=== PATIENT | female | born 1960 | race Caucasian/White ===

== ENCOUNTER 2019-05-02 10:51 | Emergency (ER) | payer BC ==
[2019-05-02] MEDS ORDERED: Sodium Chloride 0.9% 1000 ML 1,000 ML IV STA (10:55)
[2019-05-02] MEDS ORDERED: BABY ASPIRIN 81 MG CHEW PO ONE (10:55)
[2019-05-02] MEDS ORDERED: Zofran 4 MG/2 ML VIAL IV ONE (10:55)
--- NOTE | 2019-05-02 10:59 | ERPHSYRPT ---
- History of Present Illness Time Seen by Provider: 05/02/19 10:55 Historian: patient Exam Limitations: no limitations Physician History: Patient has had constant chest pain with pain on inspiration for the past 3 days. She has not had any evaluation or testing prior to coming into the emergency department. Timing/Duration: day(s) (3) Activities at Onset: rest Quality: sharpness Location: substernal, central, back (patient feels the pain in her back in the thoracic area is different and separate from her chest pain) Chest Pain Radiation: back Severity of Pain-Max: moderate Severity of Pain-Current: moderate Modifying Factors: Improves With: breathing (worsens the pain in her chest and back), movement (worsens the pain in her back). Worsens With: coughing, defecating, eating, exertion, lying down, rest, change in position Associated Symptoms: nausea, shortness of breath, hurts to breathe, diaphoresis , No vomiting, No palpitations, No heartburn, No abdominal pain, No cough, No chills, No fever, No fatigue, No weakness, No syncope, No rash, No headache, No dizziness, No edema Prior Chest Pain/Cardiac Workup: no prior chest pain Nitro Today/Relief: no nitro taken today Aspirin Treatment Today: no aspirin today Allergies/Adverse Reactions: No Known Drug Allergies Allergy (Verified 05/02/19 11:10) Home Medications: Desvenlafaxine Succinate [Pristiq ER] 50 mg PO DAILY 10/03/18 [History] Omeprazole 40 mg PO DAILY 10/03/18 [History] Alprazolam 1 mg [Xanax 1 mg] 1 mg PO HS 05/02/19 [History] - Review of Systems Constitutional: No Fever, No Chills Eyes: No Symptoms Ears, Nose, & Throat: No Nose Congestion, No Mouth Pain, No Mouth Swelling, No Hoarse, No Painful Swallowing Respiratory: No Cough, No Dyspnea Cardiac: Chest Pain, No Edema, No Syncope Abdominal/Gastrointestinal: No Abdominal Pain, No Nausea, No Vomiting, No Diarrhea Genitourinary Symptoms: No Dysuria Musculoskeletal: No Back Pain, No Neck Pain Skin: No Rash Neurological: No Dizziness, No Focal Weakness, No Sensory Changes Psychological: No Symptoms Endocrine: No Symptoms Hematologic/Lymphatic: No Easy Bleeding, No Easy Bruising All Other Systems: Reviewed and Negative - Past Medical History Pertinent Past Medical History: No Neurological History: No Pertinent History ENT History: No Pertinent History Cardiac History: No Pertinent History Respiratory History: No Pertinent History Endocrine Medical History: No Pertinent History Musculoskeletal History: No Pertinent History GI Medical History: No Pertinent History History: No Pertinent History Psycho-Social History: No Pertinent History Female Reproductive Disorders: No Pertinent History - Past Surgical History Past Surgical History: Yes Neuro Surgical History: No Pertinent History Cardiac: No Pertinent History Respiratory: No Pertinent History Gastrointestinal: No Pertinent History, Cholecystectomy Genitourinary: No Pertinent History Musculoskeletal: Orthopedic Surgery Female Surgical History: Section Other Surgical History: kendall carpal tunnel,,lap babar., - Social History Smoking Status: Never smoker Exposure to second hand smoke: No Drug Use: none - Nursing Vital Signs Nursing Vital Signs: Initial Vital Signs Temperature 100.2 F 05/02/19 10:52 Pulse Rate 98 H 05/02/19 10:52 Blood Pressure 137/78 05/02/19 10:52 O2 Sat by Pulse Oximetry 100 05/02/19 10:52 Pain Scale Pain Intensity 4 - Physical Exam General Appearance: no apparent distress, alert Eye Exam: PERRL/EOMI, eyes nml inspection Ears, Nose, Throat Exam: normal ENT inspection, moist mucous membranes Neck Exam: normal inspection, non-tender, supple, full range of motion Respiratory Exam: normal breath sounds, lungs clear, airway intact, No respiratory distress, No accessory muscle use, No prolonged expirations, No crackles/rales, No rhonchi, No wheezing, No stridor, No pleural rub Cardiovascular Exam: regular rate/rhythm, normal heart sounds, normal peripheral pulses, capillary refill <2 sec, No murmur, No friction rub Gastrointestinal/Abdomen Exam: soft, No tenderness, No mass Back Exam: normal inspection, No CVA tenderness, No vertebral tenderness Extremity Exam: normal inspection, normal range of motion Neurologic Exam: alert, oriented x 3, cooperative, sr. media manager II-XII nml as tested, normal mood/affect, sensation nml, No motor deficits Skin Exam: normal color, warm, dry SpO2 Interpretation: normal O2 Delivery: Room Air - Course Nursing assessment & vital signs reviewed: Yes EKG Interpreted by Me: RATE (105), Sinus Tach, NORMAL AXIS, NORMAL INTERVALS, NORMAL QRS, NORMAL ST-T - CT Exams Chest CT Interpretation: Other (per radiologist interpretation: No acute cardiopulmonary processes seen. No evidence of pulmonary embolism, aortic dissection, airspace of Ultrase, pneumothorax, or pleural effusion/abnormal pleural reaction. This delta reveals no acute fracture or aggressive bone lesion. Mild to moderate osteoarthritic changes are seen within the mid and lower thoracic spine. There is also some mild anterolateral spur in within the visualized upper lumbar spine. The upper abdomen reveals an unremarkable appearance of the adrenal glands. Surgical clips consistent with prior cholecystectomy are noted. The remainder of the visualized upper abdomen appears unremarkable. some minimal linear atelectasis is seen at the anterior medial right lung base.) Ordered Tests: Active Orders 24 hr Category Date Time Status Door Clamper STAT Care 05/02/19 10:56 Active EKG-ER Only STAT Care 05/02/19 10:55 Active IV Insertion STAT Care 05/02/19 10:55 Active Re-Check Vital Signs STAT Care 05/02/19 10:55 Active CHEST WITH CONTRAST [CT] Stat Exams 05/02/19 10:56 Taken CBC W DIFF Stat Lab 05/02/19 11:25 Completed CK-Creatinine Phosphokinase Stat Lab 05/02/19 11:25 Completed CMP Stat Lab 05/02/19 11:25 Completed LIPASE Stat Lab 05/02/19 11:25 Completed NT PRO BNP Stat Lab 05/02/19 11:25 Completed PROTIME WITH INR Stat Lab 05/02/19 11:25 Completed PTT Stat Lab 05/02/19 11:25 Completed TROPONIN Q3H Lab 05/02/19 11:25 Completed TROPONIN Q3H Lab 05/02/19 14:00 Ordered TROPONIN Q3H Lab 05/02/19 17:00 Ordered TROPONIN Q3H Lab 05/02/19 20:00 Ordered TROPONIN Q3H Lab 05/02/19 23:00 Ordered Medication Summary Discontinued Medications Generic Name Dose Route Start Last Admin Trade Name Freq PRN Reason Stop Dose Admin Aspirin 324 mg 05/02/19 10:55 05/02/19 11:25 Baby Aspirin 81 Mg Chew PO 05/02/19 10:56 324 mg STAT ONE Administration Sodium Chloride 1,000 mls @ 999 mls/hr 05/02/19 10:55 05/02/19 11:46 Sodium Chloride 0.9% 1000 Ml IV 05/02/19 11:55 999 mls/hr .Q1H1M STA Administration Sodium Chloride Confirm 05/02/19 11:45 Sodium Chloride 0.9% 1000 Ml Administered 05/02/19 11:46 Dose 1,000 mls @ ud .ROUTE .[employer] ONE Ondansetron HCl 4 mg 05/02/19 10:55 05/02/19 11:46 Zofran 4 Mg/2 Ml Vial IV 05/02/19 10:56 4 mg STAT ONE Administration Ondansetron HCl Confirm 05/02/19 11:45 Zofran 4 Mg/2 Ml Vial Administered 05/02/19 11:46 Dose 4 mg .ROUTE .[employer] ONE Lab/Rad Data: Laboratory Result Diagrams 05/02/19 11:25 05/02/19 11:25 Laboratory Results 05/02/19 05/02/19 05/02/19 Range/Units 11:25 11:25 11:25 WBC (4.0-10.5) K/mm3 RBC (4.1-5.4) M/mm3 Hgb (12.0-16.0) gm/dl Hct (35-47) % MCV (78-100) fl MCH (26-32) pg MCHC (32-36) g/dl RDW (11.5-14.0) % Plt Count (150-450) K/mm3 MPV (6-9.5) fl Gran % (36.0-66.0) % Eos # (Auto) (0-0.5) Absolute Lymphs (auto) (1.0-4.6) Absolute Monos (auto) (0.0-1.3) Lymphocytes % (24.0-44.0) % Monocytes % (0.0-12.0) % Eosinophils % (0.00-5.0) % Basophils % (0.0-0.4) % Absolute Granulocytes (1.4-6.9) Basophils # (0-0.4) PT 13.0 H (9.95-12.35) SECONDS INR 1.15 (0.8-3.0) APTT 30.7 (25.3-37.0) SECONDS Sodium 139 (137-145) mmol/L Potassium 4.1 (3.5-5.1) mmol/L Chloride 103 (98-107) mmol/L Carbon Dioxide 26 (22-30) mmol/L Anion Gap 14.4 (5-15) MEQ/L BUN 11 (7-17) mg/dL Creatinine 0.60 (0.52-1.04) mg/dL Estimated GFR > 60.0 ML/MIN Glucose 104 (74-106) mg/dL Calcium 9.6 (8.4-10.2) mg/dL Total Bilirubin 0.70 (0.2-1.3) mg/dL AST 24 (14-36) U/L ALT 24 (0-35) U/L Alkaline Phosphatase 65 (38-126) U/L Creatine Kinase 44 (30-135) U/L Troponin I < 0.012 (0.000-0.034) ng/mL NT-Pro-B Natriuret Pep 116 (0-900) pg/mL Serum Total Protein 7.7 (6.3-8.2) g/dL Albumin 4.4 (3.5-5.0) g/dL Lipase 36 (23-300) U/L 05/02/19 Range/Units 11:25 WBC 11.5 H (4.0-10.5) K/mm3 RBC 4.06 L (4.1-5.4) M/mm3 Hgb 12.5 (12.0-16.0) gm/dl Hct 37.7 (35-47) % MCV 92.9 (78-100) fl MCH 30.7 (26-32) pg MCHC 33.2 (32-36) g/dl RDW 12.8 (11.5-14.0) % Plt Count 226 (150-450) K/mm3 MPV 9.8 H (6-9.5) fl Gran % 68.2 H (36.0-66.0) % Eos # (Auto) 0.07 (0-0.5) Absolute Lymphs (auto) 2.29 (1.0-4.6) Absolute Monos (auto) 1.27 (0.0-1.3) Lymphocytes % 20.0 L (24.0-44.0) % Monocytes % 11.1 (0.0-12.0) % Eosinophils % 0.6 (0.00-5.0) % Basophils % 0.1 (0.0-0.4) % Absolute Granulocytes 7.81 H (1.4-6.9) Basophils # 0.01 (0-0.4) PT (9.95-12.35) SECONDS INR (0.8-3.0) APTT (25.3-37.0) SECONDS Sodium (137-145) mmol/L Potassium (3.5-5.1) mmol/L Chloride (98-107) mmol/L Carbon Dioxide (22-30) mmol/L Anion Gap (5-15) MEQ/L BUN (7-17) mg/dL Creatinine (0.52-1.04) mg/dL Estimated GFR ML/MIN Glucose (74-106) mg/dL Calcium (8.4-10.2) mg/dL Total Bilirubin (0.2-1.3) mg/dL AST (14-36) U/L ALT (0-35) U/L Alkaline Phosphatase (38-126) U/L Creatine Kinase (30-135) U/L Troponin I (0.000-0.034) ng/mL NT-Pro-B Natriuret Pep (0-900) pg/mL Serum Total Protein (6.3-8.2) g/dL Albumin (3.5-5.0) g/dL Lipase (23-300) U/L - Progress Progress: re-examined Air Movement: good Progress Note: 05/02/19 12:20 Patient's pain has improved, but did worsen with movement. 05/02/19 12:35 Patient is chest pain free. patient denies any pleuritic type chest pain, palpitations, dyspnea, abdominal pain or fevers currently. patient has no hypoxia and is 100% on room air. 05/02/19 12:40 HEART score: 1- up to 1.7% risk of MACE in the next 6 weeks, low risk, can be worked up as an outpatient at this time. -patient is at low risk for an acute cardiac, pulmonary, vascular, or infectious etiology causing her symptoms at this time he can be discharged home with followup as an outpatient with her primary care provider. 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 Prescriptions: Etodolac 400 mg [Lodine 400 mg] 400 mg PO BID PRN PRN #20 tablet PRN Reason: Pain
[2019-05-02 11:41] LABS: BASOPHIL % 0.1 % (0.0-0.4); Basophil (Absolute #) 0.01 (0-0.4); Eosinophil % 0.6 % (0.00-5.0); Eosinophil (Absolute #) 0.07 (0-0.5); Granulocyte Absolute (ANC) 7.81 (1.4-6.9); Granulocytes % 68.2 % (36.0-66.0); Hematocrit 37.7 % (35-47); Hemoglobin 12.5 gm/dl (12.0-16.0); Lymphocyte (Absolute #) 2.29 (1.0-4.6); Mean Cell Volume 92.9 fl (78-100); Mean Corpuscular Hemoglobin 30.7 pg (26-32); Mean Corpuscular Hgb Concent. 33.2 g/dl (32-36); Mean Platelet Volume 9.8 fl (6-9.5); Monocyte (Absolute #) 1.27 (0.0-1.3); Monocytes % 11.1 % (0.0-12.0); Platelet Count 226 K/mm3 (150-450); Red Blood Count 4.06 M/mm3 (4.1-5.4); Red Cell Distribution Width 12.8 % (11.5-14.0); White Blood Count 11.5 K/mm3 (4.0-10.5)
[2019-05-02] MEDS ORDERED: Zofran 4 MG/2 ML VIAL ONE (11:45)
[2019-05-02] MEDS ORDERED: Sodium Chloride 0.9% 1000 ML 1,000 ML ONE (11:45)
[2019-05-02 11:48] LABS: INR 1.15 (0.8-3.0)
[2019-05-02 11:51] LABS: PTT 30.7 SECONDS (25.3-37.0)
[2019-05-02 12:01] LABS: ALBUMIN 4.4 g/dL (3.5-5.0); ALKALINE PHOSPHATASE 65 U/L (38-126); ANION GAP 14.4 MEQ/L (5-15); BLOOD UREA NITROGEN 11 mg/dL (7-17); CHLORIDE 103 mmol/L (98-107); CK-Creatinine Phosphokinase 44 U/L (30-135); Calcium 9.6 mg/dL (8.4-10.2); Carbon Dioxide 26 mmol/L (22-30); Glucose 104 mg/dL (74-106); LIPASE 36 U/L (23-300); NT PRO BNP 116 pg/mL (0-900); Potassium 4.1 mmol/L (3.5-5.1); SGOT/AST 24 U/L (14-36); SGPT/ALT 24 U/L (0-35); SODIUM 139 mmol/L (137-145); Total Protein 7.7 g/dL (6.3-8.2)
--- NOTE | 2019-05-02 12:24 | XRAY ---
Exam: CT of the chest with IV contrast from 05/02/2019. CTDI: 11.92 mGy. Comparison: None. Indication: Lytic chest pain for 3 days. Technique: Post-IV contrast axial images were obtained through the chest during automated injection of 80 cc of Isovue 370 contrast material. Reconstructed coronal and sagittal images were created and reviewed. Findings: The visualized thyroid gland appears unremarkable. The central vessels enhance well and no definite pulmonary embolus is seen. No enlarged mediastinal or perihilar lymph nodes are noted. The thoracic aorta appears of normal diameter and reveals no evidence of aortic dissection. Minimal atherosclerotic vascular calcification is seen within the descending thoracic aorta. The heart size is normal without pericardial effusion. I note some minimal left coronary artery vascular calcification. Correlate clinically. The major central airways appear open. A calcified granuloma is seen at the lateral aspect of the right lung base. No air space infiltrates, significant interstitial lung disease, or suspicious soft tissue lung nodules are seen. There is no pneumothorax or pleural fluid. Some minimal linear atelectasis is seen at the anterior medial right lung base. The upper abdomen reveals an unremarkable appearance of the adrenal glands. Surgical clips consistent with prior cholecystectomy are noted. The remainder the visualized upper abdomen appears unremarkable. The skeleton reveals no acute fracture or aggressive bone lesion. Mild to moderate osteoarthritic changes are seen within the mid and lower thoracic spine. There is also some mild anterolateral spurring within the visualized upper lumbar spine. Impression: 1. No acute cardiopulmonary process is seen. I see no evidence of pulmonary embolism, aortic dissection, air space infiltrates, pneumothorax, or pleural effusion/abnormal pleural reaction. 2. Other incidental findings, as discussed above.
[2019-05-02 12:45] VITALS: BP 128/70
[2019-05-02 12:56] VITALS: PULSE 894; O2SAT 98
== END 2019-05-02 13:24 | disposition home or self-care (01) ==
LOC: ED 10:51
DX: R07.1 Chest pain on breathing (principal); R03.0 Elevated blood-pressure reading, without diagnosis of hypertension; M47.814 Spondylosis without myelopathy or radiculopathy, thoracic region
CPT/HCPCS: 36415; 71260; 80053; 82550; 83690; 83880; 84484; 85025; 85610; 85730; 93005; 93041; 96360; 96374; 99284; J2405; A9270-GY

== ENCOUNTER 2025-01-03 14:03 | Day surgery (SDC) | payer BC ==
[2025-01-03] MEDS ORDERED: BUPIVACAINE 0.5% VIAL IJ ONE (14:04)
[2025-01-03] MEDS ORDERED: ORTHOVISC IU ONE (14:04)
[2025-01-03] MEDS ORDERED: LIDOCAINE HCL 1% 50 MG/5 ML VL IJ ONE (14:04)
[2025-01-03] MEDS ORDERED: methylPREDNISolone acetate IM ONE (14:04)
[2025-01-03] MEDS ORDERED: Pepcid 20 MG VIAL IV ONE (14:57)
[2025-01-03] MEDS ORDERED: Reglan 10 MG/2 ML ONE (14:57)
[2025-01-03] MEDS ORDERED: propofoL IV ONE ×3 (15:49→16:17)
[2025-01-03] MEDS ORDERED: Xylocaine-Mpf 2% 5 Ml Vial ONE (16:04)
[2025-01-03] MEDS ORDERED: Lactated Ringers 1,000 ML IV ONE (16:35)
--- NOTE | 2025-01-03 21:19 | XRAY ---
Indication: Bilateral hip injection. Intraoperative fluoroscopy provided for 14 seconds. 2 digital spot image submitted for interpretation demonstrates needle tips projecting lateral to left and right femur necks. Small amount of contrast injected for needle tip placement. Correlate with intraoperative findings/report.
--- NOTE | 2025-01-03 21:21 | XRAY ---
Indication: Right knee injection. Intraoperative fluoroscopy provided for 8 seconds. Single digital spot image submitted for interpretation demonstrates needle tip projecting over right femur intercondylar notch. Small amount of contrast injected for needle tip placement. Correlate with intraoperative findings/report.
--- NOTE | 2025-01-05 10:12 | XRAY ---
14 seconds of fluoroscopy was used in surgery for a bilateral intra-articular hip injection.
--- NOTE | 2025-01-05 10:13 | XRAY ---
8 seconds of fluoroscopy was used in surgery for a right intra-articular knee injection.
== END 2025-01-03 16:49 | disposition home or self-care (01) ==
LOC: SDC-PAIN 14:03
PROVIDERS: ATTEND Psychiatry & Neurology Pain Medicine
DX: M16.0 Bilateral primary osteoarthritis of hip (principal); M17.11 Unilateral primary osteoarthritis, right knee
CPT/HCPCS: 20610; 73521; 73560; 77002; J1010; J2704; J7324; Q9966